=== PATIENT | male | born 1975 | race African-American/Black ===

== ENCOUNTER 2018-10-25 14:39 | Outpatient (CLI) | payer MEDICAID ==
[~2018-10-25] VITALS: Ht 170.2 cm; Wt 70.3 kg
[2018-10-25 14:50] VITALS: BP 98/64
[2018-10-25] MEDS ORDERED: PROTONIX40 MG ORAL (15:29)
--- NOTE | 2018-10-25 15:36 | GI Initial Consult Note ---
History of Present Illness General Date patient seen: Oct 25, 2018 Time patient seen: 15:29 Referring physician: HMO Reason for Consultation: abdominal pain Present Illness HPI 43-year-old male patient presents today with complaint of a weight loss of 7-8 pounds. In addition, the patient has left-sided abdominal pain, epigastric pain mainly after meals, off and on for over 2 years. Patient states his abdominal pain has recently been worse. The patient also has complaint of GERD , constipation, abdominal bloating after p.o. intake times 2 months. Denies any unintentional weight loss or changes in dietary habits. No signs of abuse or neglect. Patient is not fall risk. Home Meds Reported Medications Pantoprazole* (PROTONIX*) 40 Mg Tablet., 40 MG ORAL DAILY, TAB 10/25/18 Med list reviewed/reconciled: Yes Patient History History Provided By: Patient, Medical Record Past Medical History: none Past Surgical History: none Pertinent Family History: none Social History: Reports: smoking - Quit smoking, alcohol use - Quit drinking Review of Systems All Other Systems: negative except mentioned in HPI Physical Exam Temperature 97.9 Blood pressure 98/64 Pulse 78 90% room air Height 5 7 Weight 155 pounds Sp02 EP Interpretation: reviewed, normal General Appearance: well appearing, no apparent distress, alert Head: normocephalic EENT: PERRL/EOMI, normal ENT inspection Neck: supple Respiratory: normal breath sounds, no respiratory distress Cardiovascular: normal rate Gastrointestinal: normal inspection, non tender, soft, normal bowel sounds, non -distended Rectal: deferred Genitourinary: deferred Musculoskeletal: normal inspection, back normal Neurologic: normal inspection, alert, oriented x3, responsive Psychiatric: normal inspection, judgement/insight normal, memory normal Skin: normal inspection, normal color, no rash, warm/dry, palpation normal, well hydrated Lymphatic: normal inspection, no adenopathy GI: Plan Problems: (1) Abdominal bloating (2) Weight loss (3) Abdominal pain (4) GERD (gastroesophageal reflux disease) (5) Constipation Plan Rx Amitiza Align Probiotics RTC x [address] Rojas. Thank you for this patient referral, we will follow. The patient was seen and examined at bedside and all new and available data was reviewed in the patients chart. I agree with the above findings, impression and plan. (Patient seen earlier today. Signature stamp does not reflect patient encounter time.). - MD Rianna Carey AnhMarina CAROLINA Oct 25, 2018 15:36
--- NOTE | 2018-10-30 16:19 | GI Initial Consult Note ---
History of Present Illness General Date patient seen: Oct 25, 2018 Time patient seen: 16:16 Referring physician: O Reason for Consultation: abdominal pain Present Illness HPI 43-year-old male patient presents today with complaint of a weight loss of 7-8 pounds. In addition, the patient has left-sided abdominal pain, epigastric pain mainly after meals, off and on for over 2 years. Patient states his abdominal pain has recently been worse. The patient also has complaint of GERD , constipation, abdominal bloating after p.o. intake times 2 months. Denies any changes in dietary habits. No signs of abuse or neglect. Patient is not fall risk. Home Meds Reported Medications Pantoprazole* (PROTONIX*) 40 Mg Tablet.dr, 40 MG ORAL DAILY, TAB 10/25/18 Med list reviewed/reconciled: Yes Allergies: Coded Allergies: No Known Allergies (Unverified , 10/25/18) Patient History History Provided By: Patient, Medical Record [facility] Narrative History Provided By: Patient, Medical Record Past Medical History: none Past Surgical History: none Pertinent Family History: none Social History: Reports: smoking - Quit smoking, alcohol use - Quit drinking Review of Systems All Other Systems: negative except mentioned in HPI Physical Exam Temperature 97.9 Blood pressure 98/64 Pulse 78 90% room air Sp02 EP Interpretation: reviewed, normal General Appearance: well appearing, no apparent distress, alert Head: normocephalic EENT: PERRL/EOMI, normal ENT inspection Neck: supple Respiratory: normal breath sounds, no respiratory distress Cardiovascular: normal rate Gastrointestinal: normal inspection, non tender, soft, normal bowel sounds, non -distended Rectal: deferred Genitourinary: deferred Musculoskeletal: normal inspection, back normal Neurologic: normal inspection, alert, oriented x3, responsive Psychiatric: normal inspection, judgement/insight normal, memory normal Skin: normal inspection, normal color, no rash, warm/dry, palpation normal, well hydrated Lymphatic: normal inspection, no adenopathy GI: Plan Plan Problems: (1) Abdominal bloating (2) Weight loss (3) Abdominal pain (4) GERD (gastroesophageal reflux disease) (5) Constipation Plan EGD be scheduled pending PA, will contact patient. - NPO @ [place] day prior procedure explained. Rx Amitiza Align Probiotics Will follow with additional recs post procedure. Seen with Dr. Rojas. Thank you for this patient referral. The patient was seen and examined at bedside and all new and available data was reviewed in the patients chart. I agree with the above findings, impression and plan. (Patient seen earlier today. Signature stamp does not reflect patient encounter time.). - MD Rianna [facility]En[facility]aleMarina CAROLINA Oct 30, 2018 16:19
== END 2018-10-25 15:09 | disposition home or self-care (01) ==
LOC: PAN 14:39
DX: R10.9 Unspecified abdominal pain (principal); R63.4 Abnormal weight loss; R10.13 Epigastric pain; K21.9 Gastro-esophageal reflux disease without esophagitis; K59.00 Constipation, unspecified; R14.0 Abdominal distension (gaseous)
CPT/HCPCS: 99202

== ENCOUNTER 2018-11-29 14:31 | Outpatient (CLI) | payer MEDICAID ==
[~2018-11-29 14:31] MED LIST: PROTONIX40 MG ORAL
[2018-11-29 14:53] VITALS: BP 125/69
--- NOTE | 2018-11-29 14:59 | General Progress Note ---
Assessment/Plan Problem List: (1) Abdominal pain ICD Codes: R10.9 - Unspecified abdominal pain SNOMED: 56360582 (2) GERD (gastroesophageal reflux disease) ICD Codes: K21.9 - Gastro-esophageal reflux disease without esophagitis SNOMED: 338436254 (3) Abdominal bloating ICD Codes: R14.0 - Abdominal distension (gaseous) SNOMED: 506680291 (4) Constipation ICD Codes: K59.00 - Constipation, unspecified SNOMED: 58797916 Assessment/Plan s/p EGD HP neg gastritis omeprazole carafate align miralax rtc 1 month Subjective ROS Limited/Unobtainable: Yes Allergies: Coded Allergies: No Known Allergies (Unverified , 10/25/18) Objective Last 24 Hour Vital Signs Date Time Temp Pulse Resp B/P (MAP) Pulse Ox O2 Delivery O2 Flow Rate FiO2 11/29/18 14:53 98.3 76 16 125/69 97 General Appearance: alert EENT: normal ENT inspection Neck: supple Cardiovascular: normal rate Respiratory/Chest: lungs clear Abdomen: normal bowel sounds, non tender, soft Extremities: non-tender Joe Rojas MD Nov 29, 2018 14:59
== END 2018-11-29 15:01 | disposition home or self-care (01) ==
LOC: PAN 14:31
DX: R10.9 Unspecified abdominal pain (principal); K21.9 Gastro-esophageal reflux disease without esophagitis; R14.0 Abdominal distension (gaseous); K59.00 Constipation, unspecified
CPT/HCPCS: G0463